=== PATIENT | female | born 1965 | race African-American/Black ===

== ENCOUNTER → 2018-08-23 | Outpatient (CLI) | payer OTHER ==
[~2018-08-23] MED LIST: BACTRIM DS TAB1 EACH PO; NOHOMEMEDICATIONS; NORCO 5-325 TA1 EACH PO; ZOFRAN ODT4 MG PO
== END ==
LOC: NUC 10:54
DX: M43.16 Spondylolisthesis, lumbar region (principal); M81.0 Age-related osteoporosis without current pathological fracture; M12.88 Other specific arthropathies, not elsewhere classified, other specified site; Z78.0 Asymptomatic menopausal state

== ENCOUNTER → 2018-09-15 | Outpatient (CLI) | payer OTHER | LOC: RAD 09-14 13:57 | DX: Z12.31 Encounter for screening mammogram for malignant neoplasm of breast (principal) ==

== ENCOUNTER → 2019-09-19 | Outpatient (CLI) | payer OTHER | LOC: BC 14:50 | DX: Z12.31 Encounter for screening mammogram for malignant neoplasm of breast (principal) ==

== ENCOUNTER 2019-10-29 00:11 | Emergency (ER) | payer OTHER ==
[~2019-10-29] VITALS: Ht 162.6 cm; Wt 73.5 kg
[2019-10-29] MEDS ORDERED: MINIVELLE1 EAC1 PO (00:37)
[2019-10-29] MEDS ORDERED: CYMBALTA60 MG PO (00:38)
[2019-10-29] MEDS ORDERED: NORVASC 2.5 MG2.5 M1 PO (00:38)
[2019-10-29 03:46] LABS: CALCIUM 8.5 mg/dL (8.5-10.1); POTASSIUM 3.9 mmol/L (3.5-5.1)
[2019-10-29 03:55] LABS: ABSOLUTE NEUTROPHILS 7.7 thou/uL (1.4-8.2); BASOPHILS 0.9 % (0.0-2.0); EOSINOPHILS 2.9 % (0.0-3.0); HEMATOCRIT 36.7 % (37.0-47.0); HEMOGLOBIN 11.8 gm/dL (12.0-15.0); LYMPHOCYTES 22.6 % (24.0-44.0); MCH 27.5 pg (26.0-34.0); MCHC 32.2 g/dL (28.0-37.0); MCV 85.5 fL (80.0-100.0); MONOCYTES 7.4 % (1.0-8.0); PLATELET COUNT 444 thou/uL (150-400); POLYS 66.2 % (36.0-66.0); RDW 15.3 % (10.5-14.5); WBC 11.7 thou/uL (4.0-11.0)
[2019-10-29] MEDS ORDERED: TRAMADOL 50 MG50 MG PO (06:20)
[2019-10-29 06:59] VITALS: BP 134/86
--- NOTE | 2019-10-29 10:29 | EKG ---
[address] [address] ELECTROCARDIOGRAM REPORT Name: VANDANA WHITFIELD Room #: [facility] [id number] Admission: 10/29/19 Attend Phys: Discharge: 10/29/19 Date of : 65 Report #: [id number] THIS REPORT FOR: //name// [facility] ED Test Date: 2019-10-29 Test Time: 03:36:07 Pat Name: VANDANA EDOUARD Department: Room: Gender: F Research Librarian: MPALuis DanielK : 1965 Requested By: Мария Mcqueen Order Number: [id number] MD: Reed Gupat Measurements Intervals [place] Rate: 83 P: 71 [place]: 138 QRS: 52 QRSD: 77 T: 25 QT: 386 QTc: 454 Interpretive Statements Sinus rhythm No previous ECG available for comparison Electronically Signed On 10-29-2019 10:28:57 STATE AUDITOR by Reed Gupta [email or web address] <ELECTRONICALLY SIGNED> By: Reed Gupta MD 10/29/19 1028 [id number] Reed Gupta MD /EPI
== END 2019-10-29 07:00 | disposition home or self-care (01) ==
LOC: ER 00:11
PROVIDERS: Emergency Medicine Emergency Medical Services
DX: R07.89 Other chest pain (principal); Z98.890 Other specified postprocedural states; Z90.711 Acquired absence of uterus with remaining cervical stump; Z88.1 Allergy status to other antibiotic agents; Z88.6 Allergy status to analgesic agent

== ENCOUNTER → 2020-09-19 | Outpatient (CLI) | payer OTHER ==
[~2020-09-19] MED LIST changes: +CYMBALTA60 MG PO; +MINIVELLE1 EAC1 PO; +NORVASC 2.5 MG2.5 M1 PO; +TRAMADOL 50 MG50 MG PO
== END ==
LOC: BC 09:36
PROVIDERS: ATTEND Obstetrics & Gynecology
DX: Z12.31 Encounter for screening mammogram for malignant neoplasm of breast (principal)

== ENCOUNTER → 2021-09-19 | Outpatient (CLI) | payer OTHER | LOC: BC 12:50 | PROVIDERS: ATTEND Obstetrics & Gynecology | DX: Z12.31 Encounter for screening mammogram for malignant neoplasm of breast (principal) ==